=== PATIENT | female | born 1985 | race Caucasian/White ===

== ENCOUNTER 2019-02-08 18:03 | Emergency (ER) | payer MEDICAID ==
[~2019-02-08] VITALS: Ht 152.4 cm; Wt 52.3 kg
[2019-02-08 18:10] VITALS: BP 127/73
[2019-02-08] MEDS ORDERED: PRED20TA PO (18:33)
[2019-02-08] MEDS ORDERED: predniSONE 20 mg tablet PO ONE (18:35)
== END 2019-02-08 18:51 | disposition home or self-care (01) ==
LOC: ER 18:04
DX: L23.7 Allergic contact dermatitis due to plants, except food (principal); Z79.899 Other long term (current) drug therapy
CPT/HCPCS: 99283; J7512

== ENCOUNTER 2022-01-25 21:18 | Emergency (ER) | payer MEDICAID ==
[~2022-01-25] VITALS: Ht 152.4 cm; Wt 54.1 kg
[2022-01-25 21:37] VITALS: BP 125/86
[2022-01-25] MEDS ORDERED: dexamethasone 4mg/ml inj IM ONE (23:15)
[2022-01-25] MEDS ORDERED: PRED20TA PO (23:15)
== END 2022-01-25 23:28 | disposition home or self-care (01) ==
LOC: ER 21:18
DX: L23.7 Allergic contact dermatitis due to plants, except food (principal)
CPT/HCPCS: 96372; 99283; J1100

== ENCOUNTER 2025-01-30 18:13 | Emergency (ER) | payer MEDICAID, OTHER ==
[~2025-01-30] VITALS: Ht 152.4 cm; Wt 49.1 kg
[2025-01-30] MEDS ORDERED: KEN0.1O TOP (18:38)
--- NOTE | 2025-01-30 18:38 | Physician Documentation ---
History of Present Illness ~ Chief Complaint: Rash Stated Complaint: MED REQUEST Time Seen by MD: 18:21 Primary Medical Doctor: DR JAYME ABRAMS Source: patient Mode of Arrival: POV Exam Limitations: no limitations HPI 39-year-old female woke up with poison oak on her face and has some spots on her arms as well as to her abdomen. Patient got it while being outdoors about 2 days ago. And just noticed it pop up this morning. Medication Reconciliation Allergies: Coded Allergies: No Known Allergies (Unverified , 01/30/25) Past Medical History Past Medical History: No Pertinent History Past Surgical History: noncontributory Alcohol Use: None Lives In: Home Occupation: unemployed Review of Systems Integumentary: Reports: see HPI Physical Exam Vital Signs: RN Vital Signs have been reviewed: Yes, Temperature: 97.0, Heart Rate: 97, Respiratory Rate: 18, BP: 136/86, Pulse Oximetry: 96, Weight: 49.100 Oxygen Flow Rate: 0 Physical Exam General: Alert, no apparent distress. HEENT: moist mucous membranes. Neck: Full range of motion. Respiratory: No respiratory distress speaking in full sentences Chest: No accessory muscle use. Cardiovascular: Appears well perfused Neurologic: Oriented x4. Psychiatric: Normal mood and affect. Skin: Raised erythematous maculopapular rash to the forehead and cheek primarily on the right as well as a few scattered spots to her upper extremities. Progress Results/Orders Results/Orders Vital Signs 01/30/25 18:16 Temp 97.0 Pulse 97 Resp 18 B/P (MAP) 136/86 Pulse Ox 96 O2 Flow Rate 0 Medical Decision Making Additional information obtaine: N/A Findings Poison oak type rash to face upper extremities and abdomen. Kenalog shot provided cream prescribed with education not getting the cream in her eyes or pitting and on her face. Patient will follow up with primary care Differential Dx:Considerations: Include: Contact dermatitis, Other Departure Time of Disposition: 18:37 Disposition: 01 HOME / SELF CARE / HOMELESS Impression: Primary Impression: Poison oak dermatitis Condition: Stable Discharge Instructions: Contact Dermatitis Additional Instructions: Use cream on abdomen and arms do not use it on face or get it in your eye. Follow up with primary care in 1 week Referrals: NO PRIMARY CARE PROVIDER (PCP) Prescriptions Triamcinolone Acetonide 0.1% Crm* (Kenalog 0.1% Crm*) 1 Applic Tube 1 APPLIC TOP Q12H for 10 Days, #80 GM Prov: ALIYAH SARAVIA NP 01/30/25 Education Educated: Patient Educated regarding: diagnosis, treatment, need for follow up Signature Scribe Signature: No scribe Attestation: The note accurately reflects work and decisions made by me.Aliyah GAN 01/30/25 18:38 ALIYAH SARAVIA NP Jan 30, 2025 18:38
[2025-01-30] MEDS: triamcinolone acetonide 40mg/ml inj IM ONE (18:46)
[2025-01-30 18:53] VITALS: BP 134/84; PULSE 96; RESP 18; TEMP 98.6; O2SAT 99
== END 2025-01-30 18:54 | disposition home or self-care (01) ==
LOC: ER 18:14
DX: L23.7 Allergic contact dermatitis due to plants, except food (principal); Z56.0 Unemployment, unspecified
CPT/HCPCS: 96372; 99283; J3301